=== PATIENT | male | born 1970 | race Caucasian/White ===

== ENCOUNTER 2017-03-30 08:13 | Emergency (ER) | payer MEDICAID, SELFPAY ==
[~2017-03-30] VITALS: Ht 182.9 cm; Wt 86.3 kg
[2017-03-30] MEDS ORDERED: LORazepam 1MG TABLET PO ONE (09:00)
[2017-03-30] MEDS ORDERED: LORazepam 1MG TABLET ONE (09:08)
[2017-03-30] MEDS ORDERED: LORazepam 2 MG/ML, 1ML ONE (09:09)
[2017-03-30] MEDS ORDERED: SODIUM CHLORIDE FLUSH 10ML SYR IVF ONE (09:30)
[2017-03-30] MEDS ORDERED: LORazepam 2 MG/ML, 1ML IVPush ONE (09:30)
[2017-03-30] MEDS ORDERED: SODIUM CHLORIDE 0.9% 1,000ML IVBOLUS ONE (09:30)
[2017-03-30 09:43] LABS: BLOOD UREA NITROGEN 8 mg/dL (7-18)
[2017-03-30 11:38] VITALS: BP 141/87
== END 2017-03-30 11:42 | disposition home or self-care (01) ==
LOC: ED 09:02
DX: I83.93 Asymptomatic varicose veins of bilateral lower extremities (principal); M79.605 Pain in left leg; F41.1 Generalized anxiety disorder; I10 Essential (primary) hypertension
CPT/HCPCS: 36415; 73080; 80048; 82040; 85025; 93005; 93970; 96360; 96361; 99285; J7030

== ENCOUNTER 2021-01-01 11:28 | Emergency (ER) | payer MEDICAID ==
[~2021-01-01] VITALS: Ht 182.9 cm; Wt 85.0 kg
[~2021-01-01 11:28] MED LIST: ALPR0.5T7 PO; LISI-167 PO
[2021-01-01 11:35] VITALS: BP 161/95
--- NOTE | 2021-01-01 11:38 | NUR ---
PT AMBULATED BACK TO ROOM WITH CUSTOMER CONTACT REPRESENTATIVE WITHOUT DIFFICULTY.
[2021-01-01] MEDS ORDERED: KETOROLAC 30 MG/1 ML ONE (12:09)
--- NOTE | 2021-01-01 12:14 | NUR ---
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
--- NOTE | 2021-01-01 12:14 | NUR ---
BREAK RN: PT PROVIDED URINE SAMPLE. UA COLLECTED AND SENT TO LAB.
--- NOTE | 2021-01-01 12:25 | NUR ---
BREAK RN: REPORT BACK TO [facility].
--- NOTE | 2021-01-01 12:26 | NUR ---
TO ULTRASOUND VIA RRAJI
[2021-01-01] MEDS ORDERED: KETOROLAC 30 MG/1 ML IM ONE (12:30)
[2021-01-01 12:42] LABS: MICROSCOPIC NOT IND
--- NOTE | 2021-01-01 12:56 | NUR ---
PT STATES SOME IMPROVEMENT WITH TORADOL. AWAITING DISPO
== END 2021-01-01 14:35 | disposition home or self-care (01) ==
LOC: ED 12:30
DX: K59.00 Constipation, unspecified (principal); R10.9 Unspecified abdominal pain; N50.812 Left testicular pain; N43.41 Spermatocele of epididymis, single; N43.3 Hydrocele, unspecified; M79.89 Other specified soft tissue disorders; I10 Essential (primary) hypertension; F17.210 Nicotine dependence, cigarettes, uncomplicated
CPT/HCPCS: 74018; 76870; 81003; 87491; 87591; 96372; 99285; J1885